=== PATIENT | female | born 1930 | race Caucasian/White ===

== ENCOUNTER 2018-02-18 02:03 | Observation (INO) | payer OTHER, BC ==
[~2018-02-18] VITALS: Ht 167.6 cm; Wt 87.1 kg
[~2018-02-18 02:03] MED LIST: ADVAIR 250/501 DISK IH; ASPIR 8181 M1 PO; ASPIRIN325 MG PO; CEFDINIR300 MG PO; COUMADIN2 MG PO; CRESTOR5 MG PO; DAILY VITAMIN1 EAC8 PO; FEOSOL325 MG PO; FLORASTOR250 MG PO; FOSAMAX70 MG PO; GABAPENTIN600 MG PO; HYDROCODON-ACE1 EAC7 PO; HYZAAR 50-121 TABLET PO; IRON325 M1 PO; IRON325 MG PO; LASIX40 MG PO; LIDOCAINE700 MG TD; METOPROLOL SUCC25 MG PO; METOPROLOL TART25 MG PO; MILK OF MAGN PO; NORCO 5/3251 TABLET PO; Ocean Nasal 0.65% BOTH NARES; PAIN & FEVER500 MG PO; PRENATAL TABLE1 EACH PO; PROVENTIL,2.5 MG/3 M IH; SENNA S TABLET1 EACH PO; SENNA8.6 MG PO; TEGRETOL200 MG PO; TRAMADOL HCL50 MG PO; TYLENOL EXTRA500 MG PO; TYLENOL REGULA325 MG PO; XALATAN2.5 ML BOTH EYES; XALATAN2.5 ML LEFT EYE
[2018-02-18 02:35] LABS: HEMATOCRIT 38.9 % (36.0-46.0); HEMOGLOBIN 13.3 G/DL (11.9-15.5); MCH 34.5 PG (29.0-34.0); MCHC 34.2 G/DL (30.0-36.0); PLATELET COUNT 167 K/uL (156-360); RBC DIS.WIDTH-CV 13.5 % (11.8-14.6); RBC DIS.WIDTH-SD 50.2 % (39-53); RED BLOOD COUNT 3.85 M/uL (3.80-5.20); WHITE BLOOD COUNT 14.1 K/uL (4.1-10.2)
[2018-02-18 02:42] LABS: INTER. NORMALIZED RATIO 1.2
[2018-02-18 02:44] LABS: PTT 28.5 SEC (25-37)
[2018-02-18 02:45] LABS: CHLORIDE 103 mEq/L (99-109); POTASSIUM 3.4 mEq/L (3.7-5.4); SODIUM 143 mEq/L (136-147)
[2018-02-18 02:46] LABS: GLUCOSE 161 mg/dL (70-99)
[2018-02-18 02:50] LABS: CREATININE 1.4 mg/dL (0.6-1.3); GFR ESTIMATE (CALCULATED) 38 mL/min/
[2018-02-18 02:51] LABS: UREA NITROGEN (BUN) 19 mg/dL (9-23)
[2018-02-18 02:53] LABS: CREATINE KINASE 29 IU/L (1-294); TOTAL CK 29 IU/L (1-294)
[2018-02-18 02:57] LABS: TROP-I INTERPRETATION NEGATIVE; TROPONIN-I 0.02 ng/mL (0.0-0.30)
[2018-02-18 02:59] LABS: CK-MB 0.6 ng/mL (0.0-4.9); CKMB RELATIVE INDEX 2.1 (0.0-3.9)
[2018-02-18 05:45] VITALS: BP 123/62
[2018-02-18 07:38] VITALS: BP 114/64
[2018-02-18 10:31] LABS: HEMATOCRIT 37.1 % (36.0-46.0); HEMOGLOBIN 12.4 G/DL (11.9-15.5); MCH 33.9 PG (29.0-34.0); MCHC 33.4 G/DL (30.0-36.0); MCV 101.4 FL (83-99); PLATELET COUNT 155 K/uL (156-360); RBC DIS.WIDTH-CV 13.6 % (11.8-14.6); RED BLOOD COUNT 3.66 M/uL (3.80-5.20); WHITE BLOOD COUNT 18.5 K/uL (4.1-10.2)
[2018-02-18 11:20] VITALS: BP 114/61
[2018-02-18 12:06] LABS: CHLORIDE 101 MEQ/L (99-109); CREATININE 1.4 MG/DL (0.6-1.3); GFR ESTIMATE (CALCULATED) 38 mL/min/; GLUCOSE 151 mg/dL (70-99); POTASSIUM 3.6 MEQ/L (3.7-5.4); SODIUM 139 MEQ/L (136-147); UREA NITROGEN (BUN) 20 mg/dL (9-23)
[2018-02-18 15:30] VITALS: BP 106/58
[2018-02-18 15:58] LABS: WHITE BLOOD COUNT 19.3 K/uL (4.1-10.2)
[2018-02-18 20:19] VITALS: BP 116/61
[2018-02-18 23:28] VITALS: BP 114/55
[2018-02-19 03:44] VITALS: BP 133/65
[2018-02-19 05:49] LABS: HEMATOCRIT 34.3 % (36.0-46.0); HEMOGLOBIN 11.6 G/DL (11.9-15.5); MCH 34.4 PG (29.0-34.0); MCHC 33.8 G/DL (30.0-36.0); MCV 101.8 FL (83-99); PLATELET COUNT 153 K/uL (156-360); RBC DIS.WIDTH-CV 13.6 % (11.8-14.6); RBC DIS.WIDTH-SD 50.6 % (39-53); RED BLOOD COUNT 3.37 M/uL (3.80-5.20); WHITE BLOOD COUNT 12.2 K/uL (4.1-10.2)
[2018-02-19 06:16] LABS: CHLORIDE 101 MEQ/L (99-109); CREATININE 1.7 MG/DL (0.6-1.3); GFR ESTIMATE (CALCULATED) 30 mL/min/; GLUCOSE 117 mg/dL (70-99); POTASSIUM 4.1 MEQ/L (3.7-5.4); SODIUM 138 MEQ/L (136-147); UREA NITROGEN (BUN) 26 mg/dL (9-23)
[2018-02-19 07:58] VITALS: BP 141/78
[2018-02-19 11:38] LABS: APPEARANCE CLOUDY ((CLEAR)); BILIRUBIN NEGATIVE; BLOOD NEGATIVE; COLOR YELLOW ((YELLOW)); GLUCOSE (STRIP) NEGATIVE; KETONES NEGATIVE; LEUKOCYTES LARGE; NITRITE POSITIVE; PROTEIN (STRIP) NEGATIVE; SPECIFIC GRAVITY 1.011 (1.000-1.030)
[2018-02-19 11:56] VITALS: BP 136/68
[2018-02-19 11:57] LABS: RED BLOOD CELLS NONE SEEN /HPF (0-5); WHITE BLOOD CELLS 40-50 /HPF (0-5)
[2018-02-19 11:58] LABS: BACTERIA 2+ /HPF; EPITHELIAL CELLS 1+ /HPF; MUCUS NONE SEEN /LPF; UCUL ADDED? YES
[2018-02-19] MEDS ORDERED: SIMBRINZA 1%-0.28 ML BOTH EYES (12:09)
[2018-02-19 15:44] VITALS: BP 141/79
[2018-02-19 20:26] VITALS: BP 159/74
[2018-02-20 00:10] VITALS: BP 147/72
[2018-02-20 04:01] VITALS: BP 123/69
[2018-02-20 10:14] VITALS: BP 121/68
[2018-02-20 12:50] VITALS: BP 138/75
[2018-02-20] MEDS ORDERED: TRAMADOL HCL50 MG PO (16:01)
[2018-02-20 16:08] VITALS: BP 130/80
[2018-02-20 20:06] VITALS: BP 114/61
== END 2018-02-20 21:32 ==
LOC: EME → EDBD 02:03 → EME 02:03 → EDOF 04:17 → 4SOUTH 04:17 → ENRESERV 04:28 → 4SOUTH 05:27
PROVIDERS: Emergency Medicine; Internal Medicine; Physician Assistant Medical
PROC: 0S9C3ZZ Drainage of Right Knee Joint, Percutaneous Approach (ICD-10-PCS; principal; 2018-02-19)
DX: S80.01XA Contusion of right knee, initial encounter (principal); M25.061 Hemarthrosis, right knee; M25.561 Pain in right knee; R82.71 Bacteriuria; M19.90 Unspecified osteoarthritis, unspecified site; D72.829 Elevated white blood cell count, unspecified; D64.9 Anemia, unspecified; Z86.718 Personal history of other venous thrombosis and embolism; Z86.711 Personal history of pulmonary embolism; I25.10 Atherosclerotic heart disease of native coronary artery without angina pectoris; E78.5 Hyperlipidemia, unspecified; J44.9 Chronic obstructive pulmonary disease, unspecified; I13.0 Hypertensive heart and chronic kidney disease with heart failure and stage 1 through stage 4 chronic kidney disease, or unspecified chronic kidney disease; I50.32 Chronic diastolic (congestive) heart failure; E11.22 Type 2 diabetes mellitus with diabetic chronic kidney disease; N18.9 Chronic kidney disease, unspecified; Z96.652 Presence of left artificial knee joint; Z88.5 Allergy status to narcotic agent; W01.0XXA Fall on same level from slipping, tripping and stumbling without subsequent striking against object, initial encounter
CPT/HCPCS: 71045; 72170; 73502; 73564; 73700; 80048; 80048 91; 81003; 82550; 82553; 82948; 84484; 85027; 85048; 85610; 85651; 85730; 86140; 87040; 87077; 87086; 87186; 87205; 93005; 94640; 99281; 99285; G0378; G8978 CL; G8979 GP CK; G8980 GP CL; J0696; J1644; J1815